=== PATIENT | male | born 1960 | race Caucasian/White ===

== ENCOUNTER 2022-09-24 05:11 | Inpatient (IN) | payer MEDICAID, SELFPAY ==
--- NOTE | 2022-09-12 09:57 | EKG12_ITS ---
Test Reason : PRE OP Blood Pressure : / mmHG Vent. Rate : 055 BPM Atrial Rate : 055 BPM P-R Int : 130 ms QRS Dur : 106 ms QT Int : 420 ms P-R-T Axes : 019 024 096 degrees QTc Int : 401 ms Sinus bradycardia Incomplete left bundle branch block Borderline ECG Confirmed by GINA STANTON, GEORGINA ([id number]), supervising editor trailer DEMETRA CONKLIN ([id number]) on 09/13/2022 10:07:15 AM Referred By: MARTA Confirmed By:GEORGINA FUENTES MD
--- NOTE | 2022-09-12 10:10 | RAD_ITS ---
INDICATION: PRE-OP EXAMINATION/TECHNIQUE: X-RAY - XR Chest 2 Views COMPARISON: None. FINDINGS: LINES/DEVICES: Sternotomy wires over the mediastinum. LUNGS: No consolidation, edema or effusion. No pneumothorax. MEDIASTINUM AND CARDIOVASCULAR STRUCTURES: Cardiac silhouette not enlarged. Central airways and mediastinal contour are unremarkable. BONES AND SOFT TISSUES: Unremarkable. RAD/Chest PA and Lateral IMPRESSION: No radiographic evidence of acute cardiopulmonary disease. Electronically Signed: Rao Caldwell DO at 21:37 EST Reading Location ID and State: [facility] / [place] Tel [phone], Service support ,
[2022-09-12 10:38] LABS: Hematocrit 43.3 % (40-54); Hemoglobin 13.9 g/dL (13.0-16.5); Mean Corp Hgb Conc 32.1 g/dL (32-36); Mean Corpuscular Volume 90.4 fL (80-94); Platelet Count 188 K/mm3 (150-450); RBC Distribution Width CV 14.4 % (11.6-14.6); RBC Distribution Width SD 46.6 fl (35.1-43.9); Red Blood Count 4.79 M/mm3 (4.6-6.2); White Blood Count 6.3 K/mm3 (4.4-11.0)
[2022-09-12 11:01] LABS: Anion Gap 11 (5-15); BUN 20 mg/dL (7-18); BUN/Creat Ratio 19.4 RATIO (10-20); Calcium,Total 9.1 mg/dL (8.5-10.1); Chloride 100 mmol/L (98-107); Creatinine, Serum 1.03 mg/dL (0.70-1.30); EST Glomerular Filtration Rate 78 mL/min (>60); Est Glom Filt Rate - Afr Amer 94 mL/min (>60); Glucose 121 mg/dL (74-106); Sodium Level 138 mmol/L (136-145)
[2022-09-12 11:04] LABS: Hemoglobin A1c 7.7 % (3.8-5.6)
[2022-09-24] VITALS (11 sets, daily range): BP systolic 117–150; BP diastolic 47–77; PULSE 53–80; RESP 12–19; TEMP 36.6–37; O2SAT 93–99; BMI 36.0; BMI 36.6
[2022-09-24] MEDS: Lactated Ringers 1,000 ML 15 ML IV (05:56)
[2022-09-24 06:35] LABS: Bedside Glucose 204 mg/dL (74-106)
--- NOTE | 2022-09-24 07:25 | HP.PCM_ITS ---
[facility] - General General Date of Admission: 09/24/22 HPI Narrative JAYCEE CORNELIUS, is a 62 M who presents with lifestyle limiting claudication bilateral lower extremities, refractory to conservative therapy. He underwent bilateral iliac stents in May 2022 with minimal symptom improvement. He was found to have bilateral profunda origin disease felt to be contributing to his persistent symptoms. He presents now for bilateral endarterectomy. [facility] Medical History Alcohol use Anemia Arthritis Back pain Cancer Cardiology follow-up encounter Chronic obstructive pulmonary disease (COPD) Diabetes mellitus Easy bruising Excessive bleeding Former smoker Gastric reflux High cholesterol History of CHF (congestive heart failure) History of echocardiogram History of edema History of pain when walking History of stress test Hypercholesteremia Hypertension Leg cramps Myocardial infarction (~08/2012) Parkinson's disease Wears dentures Wears glasses Home Medications albuterol sulfate 90 mcg/actuation aerosol inhaler 2 puff inhalation Q6H PRN COPD 05/24/22 [History Last Taken 09/24/22 05:00] atorvastatin 80 mg tablet 80 mg PO DAILY CHOLESTEROL 05/24/22 [History Last Taken 09/22/22] carbidopa ER 25 mg-levodopa 100 mg tablet,extended release 1 tab PO TID PARKINSON'S 05/24/22 [History Last Taken 09/24/22 05:00] empagliflozin 10 mg tablet 10 mg PO DAILY DIABETES 05/24/22 [History Last Taken 09/22/22] icosapent ethyl 1 gram capsule (Vascepa) 2 g PO BID REDUCE HEART ATTACK 05/24/22 [History Last Taken 09/22/22] lisinopril 20 mg tablet 20 mg PO DAILY BP 05/24/22 [History Last Taken 09/24/22 05:00] metformin 500 mg tablet 1,000 mg PO BIDWMEAL DIABETES 05/24/22 [History Last Taken 09/22/22] metoprolol succinate 50 mg tablet,extended release 24 hr 50 mg PO DAILY BP 05/24/22 [History Last Taken 09/24/22 05:00] multivitamin (Daily Multi-Vitamin tablet) 1 tab PO DAILY SUPPLEMENT 05/24/22 [History Last Taken 09/22/22] nitroglycerin 0.4 mg sublingual tablet 0.4 mg sublingual Q5M PRN Chest Pain 05/24/22 [History Last Taken Unknown] omeprazole 20 mg capsule,delayed release 20 mg PO DAILY GERD 05/24/22 [History Last Taken 09/24/22 05:00] rivaroxaban 2.5 mg tablet (Xarelto) 2.5 mg PO BID BLOOD THINNER 05/24/22 [History Last Taken 09/22/22] psyllium husk (with sugar) 3.4 gram/12 gram oral powder (Daily Fiber (psyllium- sucrose)) 1 tbsp PO BID STOOL SOFTENER 08/09/22 [History Last Taken 09/22/22] Allergy/AdvReac Type Severity Reaction Status Date / Time No Known Allergies Allergy Verified 09/24/22 07:05 Surgical History H/O heart bypass surgery (~2007) History of cardiac catheterization History of coronary artery stent placement Hx of tonsillectomy Hx of vascular surgery Social History Smoking Status: Former smoker alcohol intake: former caffeine: Yes ROS Constitutional Constitutional: Denies chills, fever(s), frequent falls, lethargy or weakness Eyes Eyes: Denies blind spots, change in vision or loss of vision ENT HEENT: Denies bleeding gums, hoarseness or sore throat Cardiovascular Cardiovascular: Reports claudication; Denies abdominal pain, bluish discoloration of hand/feet, chest pain with activity, cold extremities, cyanosis, dyspnea on exertion, erythema on extremities, irregular heart rhythm, leg edema, leg ulcers, numbness in extremities or weakness in extremities Respiratory/Chest Respiratory/Chest: Denies cough, excessive phlegm production, shortness of breath at rest, shortness of breath with exertion or wheezing Gastrointestinal Gastrointestinal: Denies anorexia, change in stool character, constipation, diarrhea, melena or rectal bleeding Genitourinary Genitourinary: Denies dysuria or hematuria Musculoskeletal Musculoskeletal: Denies abnormal gait Integumentary Integumentary: Reports other Details: ; Denies erythema, non-healing lesions or wounds Neurologic Neurologic: Denies abnormal speech, focal weakness, headache(s), loss of vision, numbness, paresthesias or sensory deficit Hematologic/Lymphatic Hematologic/Lymphatic: Denies easy bleeding, easy bruising or lymphadenopathy Vital Signs Vital Signs Vital Signs: 09/24/22 05:58 09/24/22 05:58 Temperature 98 F Temperature Source Temporal Pulse Rate 53 L Respiratory Rate 18 Respiratory Pattern Normal Blood Pressure 146/69 H Blood Pressure Mean 94 Blood Pressure Source Monitor Blood Pressure Position Semi-Fowlers Blood Pressure Location Left Arm Pulse Ox 99 Oxygen Delivery Method Room Air Weight Weight: 230 lb Body Mass Index (BMI) 36.0 Physical Exam Const alert, oriented x3, no apparent distress and healthy appearing General Appearance: cooperative; Negative for combative or lethargic Orientation / Consciousness: awake Exam Limitations: no limitations HEENT Head and Scalp: normocephalic and atraumatic Eyes EOMs intact bilaterally General Eye: normal appearance of both eyes Neck full ROM General: trachea midline Resp normal respiratory effort and no use of accessory muscles Effort and Inspection: Negative for labored, stridor or audible wheezes Cardio regular rate and regular rhythm Back/Spine Cervical Spine: cervical ROM normal Extremity full ROM, normal capillary refill and no clubbing, cyanosis or edema Skin no rashes or lesions noted and no wounds Neuro oriented x3, CN's II-XII intact bilaterally, no focal motor deficits and no sensory deficits noted Psych thought process normal, cooperative, affect normal, speech normal and activity/motor behavior normal Results Lab / Micro Data Result Diagrams: 09/12/22 09:46 09/12/22 09:46 Labs: Laboratory Results - last 24 hr 09/24/22 05:52: POC Glucose 204 H Assessment & Plan Assessment/Plan (1) Severe peripheral arterial disease: PLAN: -bilateral femoral endarterectomy -bilateral sartorius flaps
--- NOTE | 2022-09-24 07:30 | PLAQ_PTH ---
PATIENT: JAYCEE CORNELIUS LOC: [facility] U#:[id number] AGE/SX: 62/M ROOM: [facility] RE09/24/[address]: Dr. Demond Romo MD : [id number] BED: 1 DIS: 09/26/2022 SPEC #: [id number] RECD: 09/24/22 13:41 STATUS: ALEXA SHAYNE #: [id number] HAILEY: 09/24/22 07:[address]: Demond Romo DEPT: SURGICAL PATHOLOGY RECD BY: Renetta Ballard Tissues: A - PLAQUE B - PLAQUE Procedures: Decalcification bone/plaque Surgery Specimen Level III HEADER OPERATION: Femoral endarterectomy, sartorius flaps PRE-OP DIAGNOSIS: Severe peripheral arterial disease TISSUE SUBMITTED: A ? Right femoral plaque, B ? Left femoral plaque MICROSCOPIC DIAGNOSIS A. Right femoral plaque, endarterectomy: Atherosclerotic tissue with focal calcifications (plaque). B. Left femoral plaque, endarterectomy: Atherosclerotic tissue with focal calcifications (plaque). SJ:rach 09/28/2022 GROSS DESCRIPTION A - Received in fixative is one container labeled with the patient's name and designated right femoral plaque. The specimen consists of two gritty fragments of yellow-davis tissue measuring in aggregate 3.8 x 2.0 x 1.5 cm. Food Preservation Scientist sections are submitted in one cassette after decalcification. B - Received in fixative is one container labeled with the patient's name and designated left femoral plaque. The specimen consists of two gritty fragments of yellow-davis tissue measuring in aggregate 4.5 x 3.5 x 0.5 cm. Food Preservation Scientist sections are submitted in one cassette after decalcification. / AM:rach 09/25/2022 TC:5 CPT: 84039 x2, 12199 x2
[2022-09-24] MEDS: Cefazolin 2 GM in 0.9% Normal Saline 100 ML IV (08:00)
[2022-09-24] MEDS: Heparin 10,000 UNITS/10 ML Vial 10000 UNITS (08:15)
[2022-09-24] MEDS: Bupivacaine 0.5% PF 10 ML VIAL (08:15)
[2022-09-24] MEDS: Heparin Injection (Vial) 5,000 UNIT/ML VIAL 5000 UNIT (08:15)
--- NOTE | 2022-09-24 14:54 | OP.PCM_ITS ---
Report of Operation Date of Procedure: 09/24/22 Pre-Operative Diagnosis: atherosclerosis with claudication bilateral lower extr emities Post-Operative Diagnosis: same, left common femoral aneurysm Surgery/Procedure Performed:: repair left common femoral aneurysm with 8 mm ptfe interposition left profunda femoral endarterectomy right common femoral endarterectomy bilateral sartorius flaps Surgeon: Demond Romo Specimen's removed: plaque Estimated Blood Loss (mL): 275 Description of Procedure: HPI: Patient is a 62-year-old male with lifestyle limiting bilateral lower extremity claudication refractory to medical and exercise therapy. Previous underwent iliac stenting in outside facility with no significant improvement in his symptoms. Angiography as well as CT scan revealed bilateral SFA occlusion and high-grade stenosis of the origin of the bilateral profunda femoris arteries. The left common femoral artery also appeared ectatic but it was unclear what the vessel had degenerative changes. He is taken now for bilateral femoral endarterectomies. Description of procedure: Upon obtaining form consent and verification correct patient procedure and site, the patient was taken to the operating room was placed under general anesthesia. He was then positioned prepped and draped in usual sterile fashion and timeout was performed. Oblique incision was made over the left common femoral artery and Bovie electrocautery used to dissect down through subcutaneous tissue. Self-retaining retractors were then put in position and further dissection carried down to the inguinal ligament which was freed along its inferior border. The femoral sheath was then incised vertically exposing the common femoral artery, which had significant degenerative changes a nd thin and friable appearing wall. We dissected proximally to the distal external iliac artery which was more normal in appearance and diameter. A right angle was used to place a vessel loop around the distal external iliac artery as well as the lateral circumflex and inferior epigastric vessels. We then carried our dissection distally down onto the superficial femoral artery and secondary branches of the profunda. A right angle was used to place a vessel loop around each of these individually and a moist sponge placed in the wound. We then turned our attention to the right femoral exposure, with an oblique incision made over the right common femoral artery. Bovie electrocautery was dissect down through subcutaneous tissue and self-retaining retractors were put in position. Then carried dissection to the inguinal ligament which was freed along its inferior border along cephalad retraction. The femoral sheath was then incised vertically exposing the common femoral artery, which is normal in caliber and appearance. We then dissected free proximally up to the distal external iliac artery and a right angle used to place a vessel loop around the iliac as well as the lateral circumflex and inferior epigastric vessels. We then carried our dissection distally onto the superficial femoral artery and the profundofemoral artery secondary branches. A right angle used to place a vessel loop around each of these individually and the patient was then heparinized and allowed to circulate for 5 minutes. An ACT was obtained and heparin redosing with subsequent ACT values. Next we occluded the right femoral vessels with Vesseloops and a longitudinal arteriotomy was created with 11 blade extended with Snow scissors. We then performed our endarterectomy with satisfactory end point into the smaller profunda branch, and eversion endarterectomy of the dominant branch. Distal endpoints were then tacked with 7-0 Prolene interrupted sutures and a bovine pericardial patch brought on the field. Patch was then secured in position using 5-0 Prolene in a running fashion. Prior to completing the suture line the vessels were backbled, and after completing the suture line the clamps were removed and satisfactory stasis was noted. There is a palpable pulse beyond the patch and normal Doppler signal in both the profundofemoral branches. 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 Next we turned our attention to the left femoral vessels, and given the aneurysmal changes it was felt that the best course of action was to replace the common femoral artery with an interposition PTFE graft beveled onto the profunda and SFA origins. The vessels were then occluded with Vesseloops in a longitudinal arteriotomy was created with 11 blade and extended with Snow scissors onto the superficial femoral artery. Given the distribution of plaque within the profunda origin it was felt that we had also extended onto the main profunda branch so secondary extension of the arteriotomy laterally on the profunda was performed. Once we were beyond the ostial plaque and endarterectomy was performed with satisfactory endpoint distally onto the latera l profunda branch and eversion endarterectomy of the medial profunda branch. Distal endpoints were then tacked with 7-0 Prolene. Given the configuration of the arteriotomy on the profunda and the superficial femoral artery was felt that a patch angioplasty of the neri of the profunda would give the best target for distal graft anastomosis. A bovine pericardial patch was then secured in position onto the lateral and main profunda branch with 5-0 Prolene. Next an 8 mm ringed PTFE graft was brought onto the field and flushed with saline. The proximal femoral arteriotomy was tailored and T configuration in the graft and beveled to match the vessel. Proximal anastomosis was performed using a 5-0 Prolene in running fashion. After completing the suture line clamps removed and the graft clamped distally with satisfactory stasis noted and a brisk pulse within the graft. The graft was then cut the length and beveled to match the distal vessel. Distal anastomosis was performed using 5-0 Prolene in a running fashion, and prior to completing the suture line the vessels were backbled and the graft flushed. After completing the suture line clamps removed and satisfactory hemostasis was noted, with a palpable pulse beyond the graft on the profundofemoral vessels. 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 All distal vessels were interrogated with Doppler with satisfactory Doppler signals. The patient was then reversed with protamine while attention was turned to the right sartorius flaps. In the right femoral exposure we dissected laterally to a point inferior to the ASIS. The fascia was then incised and the sartorius muscle mobilized along its lateral border up to the ASIS. Detachment was then taken down with Bovie and the muscle mobilized and transposed medially without tension. Vessels were then reinspected and found to be with satisfactory hemostasis, so the sartorius was anchored in position with 2-0 Vicryl. Next in the left femoral incision we dissected laterally to a point inferior to the ASIS and the fascia was incised. The sartorius muscle was then dissected free up to its insertion along the lateral border. The insertion was then taken down with Bovie and the muscle transposed over the graft with no tension. This was then secured in position using 2-0 Vicryl after satisfactory hemostasis was noted. The incisions were then closed with 3-0 Vicryl, 4-0 Monocryl, and Dermabond for the skin. Prevena wound vacs were then applied and the patient awakened from anesthesia, taken to the intensive care unit for hemodynamic and vascular monitoring. Grafts/Implants Used: 8 mm ringed PTFE, bovine patch
[2022-09-24] MEDS: Lactated Ringers 1,000 ML 100 ML IV (16:28)
[2022-09-24 16:51] LABS: Bedside Glucose 240 mg/dL (74-106)
[2022-09-24] MEDS: Carbidopa/Levodopa 25/100 Tablet PO (16:58)
[2022-09-24] MEDS: metFORMIN HCl 1,000 MG Tablet 1000 MG PO (16:58)
[2022-09-24] MEDS: oxyCODONE 5 MG Tablet PO (17:49)
[2022-09-24] MEDS: Acetaminophen 500 MG Tablet 1000 MG PO (20:38)
[2022-09-24] MEDS: Atorvastatin Calcium 80 MG Tablet PO (20:38)
[2022-09-24 21:05] LABS: Bedside Glucose 224 mg/dL (74-106)
[2022-09-25] VITALS (16 sets, daily range): BP systolic 99–137; BP diastolic 46–72; PULSE 64–88; RESP 10–22; TEMP 36.8–37.2; O2SAT 90–100
[2022-09-25] MEDS: Lactated Ringers 1,000 ML 100 ML IV (02:18)
[2022-09-25 03:28] LABS: Absolute Lymphocyte Count 1.08 X10^3/uL (0.83-4.51); Absolute Neutrophil Count 7.4 X10^3/uL (2.0-7.7); Basophil# 0.01 X10^3/uL; Basophil% 0.1 % (0-1); Eosinophil# 0.01 X10^3/uL; Eosinophils% 0.1 % (0-5); Hematocrit 36.4 % (40-54); Hemoglobin 11.5 g/dL (13.0-16.5); Lymphocyte # 1.08 X10^3/ul (0.83-4.51); Lymphocyte % 11.1 % (19-41); Mean Corp Hgb Conc 31.6 g/dL (32-36); Mean Corpuscular Volume 91.9 fL (80-94); Mean Platelet Vol. 10.1 fl (6.2-12.0); Monocyte# 1.15 X10^3/uL; Monocyte% 11.8 % (0-10); NRBC Flagged by Analyzer 0 % (0-5); Neutrophil # 7.44 X10^3/uL (2.7-7.7); Neutrophil % 76.5 % (47-70); Platelet Count 195 K/mm3 (150-450); RBC Distribution Width SD 46.6 fl (35.1-43.9); Red Blood Count 3.96 M/mm3 (4.6-6.2); White Blood Count 9.7 K/mm3 (4.4-11.0)
[2022-09-25 03:47] LABS: Anion Gap 8 (5-15); BUN 19 mg/dL (7-18); BUN/Creat Ratio 19.7 RATIO (10-20); Calcium,Total 8.8 mg/dL (8.5-10.1); Chloride 103 mmol/L (98-107); Creatinine, Serum 0.96 mg/dL (0.70-1.30); EST Glomerular Filtration Rate 84 mL/min (>60); Est Glom Filt Rate - Afr Amer 102 mL/min (>60); Estimated Creatinine Clearance 74.59 ml/min; Glucose 170 mg/dL (74-106); Potassium 4.4 mmol/L (3.5-5.1); Sodium Level 137 mmol/L (136-145)
[2022-09-25] MEDS: Carbidopa/Levodopa 25/100 Tablet PO ×3 (06:03→17:31)
[2022-09-25] MEDS: Acetaminophen 500 MG Tablet 1000 MG PO ×3 (06:03→22:45)
[2022-09-25 08:02] LABS: ACT Activated Clotting Time 125 sec (74-137)
[2022-09-25 08:02] LABS: ACT Activated Clotting Time 233 sec (74-137)
[2022-09-25 08:04] LABS: ACT Activated Clotting Time 209 sec (74-137)
[2022-09-25 08:04] LABS: ACT Activated Clotting Time 203 sec (74-137)
[2022-09-25 08:06] LABS: ACT Activated Clotting Time 185 sec (74-137)
[2022-09-25 08:09] LABS: ACT Activated Clotting Time 191 sec (74-137)
[2022-09-25 08:12] LABS: ACT Activated Clotting Time 203 sec (74-137)
--- NOTE | 2022-09-25 09:30 | CASEMGMT ---
Addendum entered by Rosas Miller 09/25/22 14:10: Reviewed PT/OT evals. No additional therapy recommended. Original Note: RN?CM?TRUCK RENTAL MANAGER?CM?to room to meet with patient for initial transition planning/care coordination?assessment.?RN?CM?introduced self and role at [facility].? Pt voices understanding and consents to?assessment?at this time.? Pt resting in bed in no distress at this time.? Pt is A/O at this time and answers all questions appropriately.?? Care providers, pharmacy, and demographics verified/updated at this time. PCP: Carol Gonzales/internal med @ [facility] Specialists: Dr Romo-vascular Preferred Pharmacy: [facility] Retail Insurance: PandoDaily Prescription Benefit:?Yes Living Will/HPOA:?Has both LW and HCPOA, who is his , Ninoska VERAOK: , Ninoska. 4 children Living Arrangements: Lives w/his in 2-story home w/3 steps to enter. [employer]. Indep w/ADL's and IADL's and manages his own medications. Transportation:?Pt states drives self and states no transportation concerns at this time.? also drives. DME: ? Denies using any DME and denies needs.?Has a cane available, if needed. HHC/SNF: No hx of either. Pt has disposable wound vac's in place to bilat groin. Pt is aware he will be discharged w/these and states Dr Romo informed him they would be in place until Saturday. Pt wishes to return home and states has no concerns with going home at time of discharge.? CM?to follow for any discharge planning/needs.? Pt voices no needs/concerns at this time.? Advised pt to ask for?CM?if any questions/concerns/needs arise.? Voices understanding. PLAN:??Home PT/OT evals pending. Ruslan HARTMANNN?RN?CM
[2022-09-25] MEDS: Multivitamins,Therapeutic Tablet 1 TABLET PO (09:42)
[2022-09-25] MEDS: metFORMIN HCl 1,000 MG Tablet 1000 MG PO ×2 (09:42→17:31)
[2022-09-25] MEDS: Psyllium 1 PACKET PO (09:42)
[2022-09-25] MEDS: Metoprolol(XL)Succ 50 MG Tablet PO (09:43)
[2022-09-25] MEDS: Enoxaparin 40 MG/0.4 ML Syringe SC (09:43)
[2022-09-25] MEDS: Lisinopril 20 MG Tablet PO (09:43)
[2022-09-25] MEDS: Pantoprazole Sodium 20 MG Tablet PO (09:43)
[2022-09-25] MEDS: Empagliflozin 10 MG Tablet PO (09:43)
[2022-09-25] MEDS: oxyCODONE 5 MG Tablet PO ×2 (10:35→15:50)
--- NOTE | 2022-09-25 10:42 | PCM.PN.SRG ---
Subjective Subjective Doing well. Ramona diet, voiding, no CP/SOB/N/V. Pain controlled, has not yet ambulated. Objective Data Objective Data Vital Signs: Vital Signs Temp Pulse Resp BP Pulse Ox O2 Del Method 98.5 F 69 13 119/72 97 Room Air 09/25/22 00:00 09/25/22 10:00 09/25/22 10:00 09/25/22 10:00 09/25/22 10:00 09/25/22 10:00 Oxygen Delivery Method Room Air Weight: 235 lb 10.786 oz Body Mass Index (BMI) 36.6 Intake & Output: Intake and Output for Last 24 Hours 09/23/22 09/24/22 09/25/22 23:59 23:59 23:59 Intake Total 269.75 / 269.75 1783.33 / 1783.33 Output Total 1775 / 1775 750 / 750 Balance -1505.25 / -1505.25 1033.33 / 1033.33 Lab / Micro Data Result Diagrams: 09/25/22 03:00 09/25/22 03:00 Labs: Laboratory Results - last 24 hr 09/24/22 07:36: Activated Clotting Time 125 09/24/22 10:11: Activated Clotting Time 233 H 09/24/22 10:55: Activated Clotting Time 209 H 09/24/22 11:30: Activated Clotting Time 203 H 09/24/22 12:20: Activated Clotting Time 185 H 09/24/22 12:56: Activated Clotting Time 191 H 09/24/22 13:41: Activated Clotting Time 203 H 09/24/22 16:29: POC Glucose 240 H 09/24/22 20:45: POC Glucose 224 H 09/25/22 03:00: WBC 9.7, RBC 3.96 L, Hgb 11.5 L, Hct 36.4 L, MCV 91.9, MCH 29.0, MCHC 31.6 L, RDW Std Deviation 46.6 H, RDW Coeff of Vito 14.0, Plt Count 195, MPV 10.1, Immature Gran % (Auto) 0.400, Neut % (Auto) 76.5 H, Lymph % (Auto) 11.1 L, Archer % (Auto) 11.8 H, Eos % (Auto) 0.1, Baso % (Auto) 0.1, Absolute Neuts (auto) 7.4, Absolute Lymphs (auto) 1.08, Nucleated RBC % 0 09/25/22 03:00: Sodium 137, Potassium 4.4, Chloride 103, Carbon Dioxide 26.0, Anion Gap 8, BUN 19 H, Creatinine 0.96, Estim Creat Clear Calc 74.59, Est GFR (MDRD) Af Amer 102, Est GFR (MDRD) Non-Af 84, BUN/Creatinine Ratio 19.7, Glucose 170 H, Calcium 8.8 Physical Exam Const alert, oriented x3, no apparent distress and healthy appearing General Appearance: cooperative; Negative for combative or lethargic Orientation / Consciousness: awake Exam Limitations: no limitations HEENT Head and Scalp: normocephalic and atraumatic Eyes EOMs intact bilaterally General Eye: normal appearance of both eyes Neck full ROM General: trachea midline Resp normal respiratory effort and no use of accessory muscles Effort and Inspection: Negative for labored, stridor or audible wheezes Cardio regular rate and regular rhythm Cardio Narrative: DP/PT monophasic bilateral Back/Spine Cervical Spine: cervical ROM normal Extremity full ROM, normal capillary refill and no clubbing, cyanosis or edema Skin no rashes or lesions noted and no wounds Skin Narrative: Provena C/D/I Neuro oriented x3, CN's II-XII intact bilaterally, no focal motor deficits and no sensory deficits noted Psych thought process normal, cooperative, affect normal, speech normal and activity/motor behavior normal Assessment & Plan Assessment/Plan (1) Severe peripheral arterial disease: PLAN: -POD # 1 right femoral endarterectomy, left interposition graft, sartorius flaps -HLIV -progressive ambulation
[2022-09-25 12:20] LABS: Bedside Glucose 210 mg/dL (74-106)
[2022-09-25 17:25] LABS: Bedside Glucose 240 mg/dL (74-106)
[2022-09-25] MEDS: Atorvastatin Calcium 80 MG Tablet PO (22:46)
[2022-09-25] MEDS: 0.9% Saline Lock 10 ML Syringe IV (22:47)
[2022-09-25] MEDS: Rivaroxaban 2.5 MG Tablet PO (23:13)
[2022-09-25 23:55] LABS: Bedside Glucose 177 mg/dL (74-106)
[2022-09-26 03:41] VITALS: BP 126/64; PULSE 77; RESP 20; TEMP 37.2; O2SAT 90
[2022-09-26] MEDS: Acetaminophen 500 MG Tablet 1000 MG PO (03:59)
[2022-09-26] MEDS: Docusate Sodium 100 MG Capsule PO (03:59)
[2022-09-26] MEDS: Carbidopa/Levodopa 25/100 Tablet PO ×2 (06:46→10:40)
[2022-09-26 07:05] VITALS: O2SAT 98
[2022-09-26 07:35] LABS: Bedside Glucose 150 mg/dL (74-106)
[2022-09-26 08:00] VITALS: BP 120/64; PULSE 71; RESP 20; TEMP 36.9; O2SAT 95
[2022-09-26 08:03] VITALS: BP 120/64; PULSE 71; RESP 18; TEMP 36.9; O2SAT 95
[2022-09-26] MEDS: metFORMIN HCl 1,000 MG Tablet 1000 MG PO (08:23)
[2022-09-26] MEDS: Multivitamins,Therapeutic Tablet 1 TABLET PO (08:23)
--- NOTE | 2022-09-26 08:41 | PCM.PN.SRG ---
Subjective Subjective Patient continues to recover well. He is tolerating diet, voiding, no N/V, F/C, CP, SOB. Pain only around incision sites, well-controlled with oral medications. He get up to the chair and ambulate some yesterday afternoon, he reports he had a lot of soreness around the incision site but otherwise felt okay. Objective Data Objective Data Vital Signs: Vital Signs Temp Pulse Resp BP Pulse Ox O2 Del Method 98.4 F 71 18 120/64 95 Room Air 09/26/22 08:03 09/26/22 08:03 09/26/22 08:03 09/26/22 08:03 09/26/22 08:03 09/26/22 08:03 Oxygen Delivery Method Room Air Weight: 235 lb 7.259 oz Body Mass Index (BMI) 36.6 Intake & Output: Intake and Output for Last 24 Hours 09/24/22 09/25/22 09/26/22 23:59 23:59 23:59 Intake Total 269.75 / 269.75 3725.00 / 3725.00 Output Total 1775 / 1775 2500 / 2500 1500 / 1500 Balance -1505.25 / -1505.25 1225.00 / 1225.00 -1500 / -1500 Lab / Micro Data Result Diagrams: 09/25/22 03:00 09/25/22 03:00 Labs: Laboratory Results - last 24 hr 09/25/22 12:00: POC Glucose 210 H 09/25/22 16:49: POC Glucose 240 H 09/25/22 22:54: POC Glucose 177 H 09/26/22 06:49: POC Glucose 150 H Physical Exam Const alert, oriented x3 and no apparent distress General Appearance: cooperative and comfortable HEENT normocephalic, head/scalp atraumatic, hearing grossly normal bilaterally and external ears normal Eyes EOMs intact bilaterally General Eye: normal appearance of both eyes Neck full ROM General: trachea midline Resp normal respiratory effort and no use of accessory muscles Effort and Inspection: able to speak in complete sentences; Negative for labored, stridor or audible wheezes Cardio regular rate and regular rhythm Back/Spine Cervical Spine: cervical ROM normal Extremity full ROM, normal capillary refill, no clubbing, cyanosis or edema and no calf tenderness Extremity Narrative: DP/PT monophasic bilateral Peripheral Pulses: Yes brachial pulses present and radial pulses present Skin no rashes or lesions noted Skin Narrative: Bilateral incision sites C/D/I, vacuum dressings maintaining seal. No hematoma/erythema/bleeding/swelling. Neuro oriented x3, CN's II-XII intact bilaterally, moves all extremities, no focal motor deficits and no sensory deficits noted Psych mental status grossly normal Appearance: grossly normal Attitude: calm and engaged Activity / Motor Behavior: appropriate eye contact Speech: normal speech Mood & Affect: euthymic mood Attention / Concentration: attention grossly intact Memory / Cognition: memory grossly intact Judgement: judgement good Assessment & Plan Assessment/Plan (1) Severe peripheral arterial disease: PLAN: He is POD # 2 right femoral endarterectomy, left interposition graft, sartorius flaps. He is recovering well, incision sites with satisfactory appearance, stable DP/PT signals on doppler, pain under good control. He will ambulate and get up to chair this morning, if still feeling well will plan to discharge this afternoon.
[2022-09-26] MEDS: oxyCODONE 5 MG Tablet PO (09:14)
[2022-09-26 09:15] VITALS: PULSE 71
[2022-09-26] MEDS: Lisinopril 20 MG Tablet PO (09:15)
[2022-09-26] MEDS: Pantoprazole Sodium 20 MG Tablet PO (09:15)
[2022-09-26] MEDS: Metoprolol(XL)Succ 50 MG Tablet PO (09:15)
[2022-09-26] MEDS: Psyllium 1 PACKET PO (09:15)
[2022-09-26] MEDS: Enoxaparin 40 MG/0.4 ML Syringe SC (09:15)
[2022-09-26] MEDS: Empagliflozin 10 MG Tablet PO (09:15)
[2022-09-26] MEDS: Rivaroxaban 2.5 MG Tablet PO (10:40)
--- NOTE | 2022-09-26 11:46 | DS.PCM_ITS ---
Providers Date of Admission: 09/24/22 Date of Discharge: 09/26/22 Primary Care Physician: BERTHA FERNANDEZ Reason For Visit: BILATERAL FEMOR ENDARTERECTOMY, SARTORIUS FLAPS Diagnosis Discharge Diagnosis (1) Severe peripheral arterial disease: Status: Chronic Code(s): I73.9 - Peripheral vascular disease, unspecified Medications at Discharge Home Medications albuterol sulfate 90 mcg/actuation aerosol inhaler 2 puff inhalation Q6H PRN COPD 05/24/22 atorvastatin 80 mg tablet 80 mg PO DAILY CHOLESTEROL 05/24/22 carbidopa ER 25 mg-levodopa 100 mg tablet,extended release 1 tab PO TID PARKINSO N'S 05/24/22 empagliflozin 10 mg tablet 10 mg PO DAILY DIABETES 05/24/22 icosapent ethyl 1 gram capsule (Vascepa) 2 g PO BID REDUCE HEART ATTACK 05/24/22 lisinopril 20 mg tablet 20 mg PO DAILY BP 05/24/22 metformin 500 mg tablet 1,000 mg PO BIDWMEAL DIABETES 05/24/22 metoprolol succinate 50 mg tablet,extended release 24 hr 50 mg PO DAILY BP 05/24/22 multivitamin (Daily Multi-Vitamin tablet) 1 tab PO DAILY SUPPLEMENT 05/24/22 nitroglycerin 0.4 mg sublingual tablet 0.4 mg sublingual Q5M PRN Chest Pain 05/24/22 omeprazole 20 mg capsule,delayed release 20 mg PO DAILY GERD 05/24/22 rivaroxaban 2.5 mg tablet (Xarelto) 2.5 mg PO BID BLOOD THINNER 05/24/22 psyllium husk (with sugar) 3.4 gram/12 gram oral powder (Daily Fiber (psyllium- sucrose)) 1 tbsp PO BID STOOL SOFTENER 08/09/22 oxycodone 5 mg capsule 5 mg PO TID PRN pain 3 days #9 caps 09/26/22 Hospital Course Operations - (right femoral endarterectmy, left interposition graft, sartorius flaps) Summary of Care Provided Hospital Course: Patient underwent planned right femoral endarterectomy and left interposition graft with sartorius flaps on 09/24/2022 to address his severe peripheral arterial disease. Bilateral groin incision sites were closed with dermabond for the skin and prevena wound vacs applied. He was routinely admitted for hemodynamic monitoring. He has remained hemodynamically stable throughout his admission. Bilateral PT/DP doppler signals have remained strong and stable. On day of discharge, pain only around the incision sites and well-controlled with oral regimen, tolerating ambulation, voiding, tolerating diet. He feels ready for discharge. Physical Exam Const oriented x3 and no apparent distress Resp normal respiratory effort and clear to auscultation bilaterally Cardio regular rate and regular rhythm Extremity full ROM, no clubbing, cyanosis or edema and no calf tenderness Extremity Narrative: Stable DP/PT doppler signals. Skin Wound Narrative: Bilateral groin incision sites C/D/I, no erythema/swelling/hematoma/bleeding, prevena wound vacs functioning appropriately, good seal. Weight / BMI Weight Weight: 235 lb 7.259 oz Body Mass Index (BMI) 36.6 ABG / Lab / Microbiology Data Result Diagrams: 09/25/22 03:00 09/25/22 03:00 Laboratory: Laboratory Results - last 24 hr 09/25/22 12:00: POC Glucose 210 H 09/25/22 16:49: POC Glucose 240 H 09/25/22 22:54: POC Glucose 177 H 09/26/22 06:49: POC Glucose 150 H D/C Instructions Discharge Diet: No restrictions Discharge Activity: - (Do not lift greater than 20 lbs for 4 weeks) May shower in (days): 1 May resume sexual activity in: 4-6 weeks Weight Bearing Status: Weight bearing as tolerated Lifting Restricted to (Lbs): 20 Lifting Restrictions: Do not lift greater than 20 pounds for 4 weeks Call your doctor if your incision/area has: Sudden Increased Bleeding, Increased Pain/ Swelling and Foul Smelling Discharge Call your doctor if you observe: Fever of 101 or Higher and Uncontrolled pain Remove Dressing in: 5 days Additional Dressing/Incision Instructions: You may remove the prevena wound vacuum in 5 days (10/01/2022). Should the dressing lose seal and you are unable to regain seal, you may remove the dressing early. The incisions are closed with skin glue which will keep them well-protected. You may cover with dry dressing or leave open to your comfort. You may shower and allow water/soap to rinse over incision sites, pat dry after. Do not submerge the incision sites in water/no baths for 4 weeks. Additional Instructions: You may shower tomorrow. Do not submerge incision sites in water for 4 weeks. Do not lift greater than 20 pounds for 4 weeks. A work note has been provided for you. Ambulate as much as tolerated. You should not drive while taking the oxycodone prescribed for pain. You may remove the vacuum dressings in 5 days (10/01/22). If you have questions/concerns about this please call the office. Continue to take Xarelto 2.5mg as prescribed. Follow-up in the office as scheduled on 10/16/2022. Please Follow Up With: Demond Romo MD When: 10/16/2022 Meaningful Use Info Meaningful Use Diagnoses (Choose all that apply): None applicable Discharge Plan Admission Admit Date/Time: 09/24/22 05:11 Primary Reason for Your Visit: Bilateral femoral endarterectomy with sartorius flaps Attending Provider: Demond Romo Primary Care Provider: BERTHA FERNANDEZ Discharge Orders/Prescriptions Prescriptions: New oxycodone 5 mg capsule 5 mg PO TID PRN (Reason: pain) 3 Days Qty: 9 0RF Continued albuterol sulfate 90 mcg/actuation HFA aerosol inhaler 2 puff inhalation Q6H PRN (Reason: COPD) atorvastatin 80 mg tablet 80 mg PO DAILY carbidopa-levodopa 25-100 mg tablet extended release 1 tab PO TID empagliflozin 10 mg tablet 10 mg PO DAILY icosapent ethyl [Vascepa] 1 gram capsule 2 g PO BID lisinopril 20 mg tablet 20 mg PO DAILY metformin 500 mg tablet 1,000 mg PO BIDWMEAL metoprolol succinate 50 mg tablet extended release 24 hr 50 mg PO DAILY multivitamin [Daily Multi-Vitamin] Tablet 1 tab PO DAILY nitroglycerin 0.4 mg tablet, sublingual 0.4 mg sublingual Q5M PRN (Reason: Chest Pain) Rx Instructions: do not exceed 3 doses per episode omeprazole 20 mg capsule,delayed release(DR/EC) 20 mg PO DAILY Xarelto 2.5 mg tablet 2.5 mg PO BID Label Comments: PER CARLO IN [facility] OFFICE HOLD 2 DOSES, LAST DOSE 09/23/22 AM DOSE Daily Fiber (psyllium-sucrose) 3.4 gram/12 gram powder 1 tbsp PO BID Referrals / Follow Up: BERTHA FERNANDEZ [Other] Disposition Disposition (needs filled in before D/C Order can be placed): Home, Self Care Charges/Coding Visit Charges Inpatient E&M: 91019 Disch Hosp
--- NOTE | 2022-09-26 12:19 | PHA.DC.MR ---
Pharmacy Service has performed discharge medication reconciliation for this patient. The patient's discharge medication list was reviewed for discrepancies and discrepancies were resolved. Home Medications albuterol sulfate 90 mcg/actuation aerosol inhaler 2 puff inhalation Q6H PRN COPD 05/24/22 atorvastatin 80 mg tablet 80 mg PO DAILY CHOLESTEROL 05/24/22 carbidopa ER 25 mg-levodopa 100 mg tablet,extended release 1 tab PO TID PARKINSON'S 05/24/22 empagliflozin 10 mg tablet 10 mg PO DAILY DIABETES 05/24/22 icosapent ethyl 1 gram capsule (Vascepa) 2 g PO BID REDUCE HEART ATTACK 05/24/22 lisinopril 20 mg tablet 20 mg PO DAILY BP 05/24/22 metformin 500 mg tablet 1,000 mg PO BIDWMEAL DIABETES 05/24/22 metoprolol succinate 50 mg tablet,extended release 24 hr 50 mg PO DAILY BP 05/24/22 multivitamin (Daily Multi-Vitamin tablet) 1 tab PO DAILY SUPPLEMENT 05/24/22 nitroglycerin 0.4 mg sublingual tablet 0.4 mg sublingual Q5M PRN Chest Pain 05/24/22 omeprazole 20 mg capsule,delayed release 20 mg PO DAILY GERD 05/24/22 rivaroxaban 2.5 mg tablet (Xarelto) 2.5 mg PO BID BLOOD THINNER 05/24/22 psyllium husk (with sugar) 3.4 gram/12 gram oral powder (Daily Fiber (psyllium-sucrose)) 1 tbsp PO BID STOOL SOFTENER 08/09/22 oxycodone 5 mg capsule 5 mg PO TID PRN pain 3 days #9 caps 09/26/22
[2022-09-26 13:13] VITALS: BP 120/64; PULSE 71; RESP 20; TEMP 36.9; O2SAT 95
== END 2022-09-26 16:03 | disposition home or self-care (01) | DRG 181 ==
LOC: ACINP 09:04 → ICU 15:12 → PCU 09-25 18:11
PROVIDERS: Admitting Provider Surgery Trauma Surgery; Referring Provider Surgery Trauma Surgery; Visit Provider Surgery Trauma Surgery
PROC: 04CL0ZZ Extirpation of Matter from Left Femoral Artery, Open Approach (ICD-10-PCS; principal; 2022-09-24 07:10)
DX: E11.51 Type 2 diabetes mellitus with diabetic peripheral angiopathy without gangrene (principal); I70.92 Chronic total occlusion of artery of the extremities; I11.0 Hypertensive heart disease with heart failure; I50.9 Heart failure, unspecified; I72.4 Aneurysm of artery of lower extremity; J44.9 Chronic obstructive pulmonary disease, unspecified; I70.213 Atherosclerosis of native arteries of extremities with intermittent claudication, bilateral legs; E78.00 Pure hypercholesterolemia, unspecified; I25.10 Atherosclerotic heart disease of native coronary artery without angina pectoris; Z79.84 Long term (current) use of oral hypoglycemic drugs; Z87.891 Personal history of nicotine dependence; Z79.01 Long term (current) use of anticoagulants; Z95.1 Presence of aortocoronary bypass graft; Z79.899 Other long term (current) drug therapy
CPT/HCPCS: 36415; 71046; 80048; 82962; 83036; 85025; 85027; 85347; 85610; 86850; 86900; 86901; 88304; 88311; 93005; 97110; 97116; 97162; 97166; 97530; 97535; 97802; J7040; J7120; A4216; J2405

== ENCOUNTER → 2022-10-04 | Outpatient (CLI) | payer MEDICAID, SELFPAY ==
--- NOTE | 2022-10-04 10:23 | VDLE_ITS ---
Reason For Study: Swelling RIGHT LEFT CFV is compressible, spontaneous, phasic, GSV is normal. competent and demonstrates normal CFV is spontaneous, phasic, competent, and augmentation. demonstrates normal augmentation. Patient Procedure unable to tolerate compression due to pain This is a venous duplex using B-mode, color post surgery. flow and spectral Doppler. FV is compressible, spontaneous, phasic, Exam performed in department. competent and demonstrates normal The exam was diagnostic. augmentation. A preliminary report was called and/or faxed Profunda FV is compressible, spontaneous and to [facility] Vascular RN. phasic. POP V is compressible, spontaneous, phasic, competent and demonstrates normal augmentation. T/P Trunk is compressible. PTV is compressible. LT PerV is compressible. VL/Venous Duplex US, Unilateral Interpretation Summary Deep veins of the left lower extremity are patent and compressible segmentally. There is no evidence of left lower extremity deep vein thrombosis. The left great saphenous vein kaylie ears patent and compressible segmentally. Ordering Physician: Deena Bullock Referring Physician: Demond Romo MD Performed By: Nasir Warren RVHanane
== END | disposition home or self-care (01) ==
LOC: CVS 10:18
PROVIDERS: Visit Provider Physician Assistant
DX: M79.89 Other specified soft tissue disorders (principal)
CPT/HCPCS: 93971

== ENCOUNTER → 2022-10-29 | Outpatient (CLI) | payer MEDICAID, SELFPAY ==
--- NOTE | 2022-10-29 08:49 | ART_ITS ---
Version 2 Reason For Study: Claudication Procedure A bilateral lower extremity continuous wave Doppler with analog waveform analysis,segmental pressures,and ankle brachial indexes with exercise. Left Segmental Pressures Left brachial= 143mmHg. Left thigh = 125mmHg. Left calf = 84mmHg. Left posterior tibial artery = 77mmHg. Left dorsalis pedis artery = 100mmHg. Left digit = 39 mmHg. The left dorsalis pedis waveforms are monophasic. The left posterior tibial artery waveforms are monophasic. Right Segmental Pressures Right brachial= 140mmHg. Right thigh = 129mmHg. Right calf = 77mmHg. Right posterior tibial artery = 77mmHg. Right dorsalis pedis artery = 89mmHg. Right digit = 45 mmHg. The right dorsalis pedis waveforms are monophasic. The right posterior tibial artery waveforms are monophasic. Indices The right ankle brachial index by the dorsalis pedis is 0.62. The right ankle brachial index by the posterior tibial artery is 0.54. The right digital-brachial index is 0.31. The right post exercise ankle brachial index is 0.18. The left ankle brachial index by the dorsalis pedis is 0.70. The left ankle brachial index by the posterior tibial artery is 0.54. The left digital-brachial index is 0.27. The left post exercise ankle brachial index is 0.19. VL/Lower Ext Art Exam w/ Exercise Interpretation Summary Right ELEONORA 0.62, moderate arterial insufficiency. Doppler/PVR waveforms and segm ental pressures reveal [id number] femoral, distal SFA/popliteal disease. Right lower extremity with abnormal response to exercise and post exercise ELEONORA in the critical category. Left ELEONORA 0.7, moderate arterial insufficiency. Doppler/PVR waveforms and segmen gregorio pressures reveal [id number] femoral, distal SFA/popliteal diease. Left lower extremity with abnormal response to exercise and post exercise ELEONORA i n the critical category. Ordering Physician: Deena Bullock Performed By: Willinger, Viola, RVT
== END | disposition home or self-care (01) ==
LOC: CVS 08:47
PROVIDERS: Visit Provider Physician Assistant
DX: I73.9 Peripheral vascular disease, unspecified (principal); Z48.812 Encounter for surgical aftercare following surgery on the circulatory system
CPT/HCPCS: 93924